=== PATIENT | male | born 1940 | race Caucasian/White ===

== ENCOUNTER 2017-01-14 18:20 | Inpatient (IN) | payer OTHER, MEDICARE ==
[~2017-01-14] VITALS: Ht 170.2 cm; Wt 75.7 kg
[2017-01-14] MEDS ORDERED: SERT100T PO (18:41)
[2017-01-14] MEDS ORDERED: TRIA10.8 NS (18:41)
[2017-01-14] MEDS ORDERED: GABA-534 PO (18:41)
[2017-01-14] MEDS ORDERED: TAMS-12 PO (18:41)
[2017-01-14] MEDS ORDERED: TRIA1TAB3 PO (18:41)
[2017-01-14] MEDS ORDERED: CARI350T27 PO (18:41)
[2017-01-14] MEDS ORDERED: METO25TA3 PO (18:41)
[2017-01-14] MEDS ORDERED: LOSA25TA13 PO (18:41)
[2017-01-14 18:44] LABS: BASOPHILS % (AUTO) 0.4 % (0.0-2.0); EOSINOPHILS # (AUTO) 0.1 /CMM (0.0-0.7); EOSINOPHILS % (AUTO) 2.1 % (0.0-6.0); HEMATOCRIT 43 % (39-51); HEMOGLOBIN 14.8 g/dL (13.5-17.5); LYMPHOCYTES # (AUTO) 1.5 /CMM (0.8-4.8); LYMPHOCYTES % (AUTO) 22.4 % (20.0-44.0); MEAN CORPUSCULAR HEMOGLOBIN 29 PG (26.0-33.0); MEAN CORPUSCULAR HGB CONC 34 g/dl (31.0-36.0); MEAN CORPUSCULAR VOLUME 86 fL (80-96); MONOCYTES # (AUTO) 0.4 /CMM (0.1-1.30); MONOCYTES % (AUTO) 6.7 % (2.0-12.0); NEUTROPHILS # (AUTO) 4.5 /CMM (1.8-8.9); NEUTROPHILS % (AUTO) 68.4 % (43.0-81.0); PLATELET COUNT (AUTO) 135 /CMM (150-450); RDW COEFFICIENT OF VARIATION 12.9 (11.5-15.0); RED BLOOD CELL COUNT(AUTO) 5.05 MIL/uL (4.5-6.0); WHITE BLOOD COUNT (AUTO) 6.5 K/uL (4.3-11.0)
[2017-01-14 18:53] LABS: CALCIUM, SERUM 10.4 mg/dL (8.5-10.1); CARBON DIOXIDE 27 mmol/L (21-32); CHLORIDE 106 mmol/L (98-107); CREATININE 1.1 mg/dL (0.6-1.3); GLUCOSE 97 mg/dL (74-106); POTASSIUM 3.8 mmol/L (3.5-5.1); SODIUM SERUM 141 mmol/L (136-145); UREA NITROGEN, BLOOD 14 mg/dL (7-18)
[2017-01-14 18:59] LABS: ALANINE AMINOTRANSFERASE 36 U/L (12-78); ALBUMIN 3.9 g/dL (3.4-5.0); ALCOHOL, BLOOD < 3 mg/dL (0-0); ALKALINE PHOSPHATASE 97 U/L (46-116); ASPARTATE AMINOTRANSFERASE 29 U/L (15-37); BILIRUBIN,DIRECT 0.1 mg/dL (0.0-0.2); BILIRUBIN,TOTAL 0.7 mg/dL (0.2-1.0); TOTAL PROTEIN, SERUM 7.5 g/dL (6.4-8.2)
[2017-01-14 19:09] LABS: ACETAMINOPHEN < 2 ug/ml (10-30); SALICYLATE < 2.8 mg/dL (2.8-20.0)
[2017-01-14 19:21] LABS: APPEARANCE,URINE Clear (CLEAR); BILIRUBIN,URINE Negative (NEGATIVE); BLOOD, URINE Negative Ery/uL (NEGATIVE); COLOR,URINE Yellow (YELLOW); KETONES,URINE Negative (NEGATIVE); LEUKOCYTE ESTERASE ,URINE Negative (NEGATIVE); NITRITE, URINE Negative (NEGATIVE); PROTEIN,URINE Negative (NEGATIVE); UGLUCOSE Negative (NEGATIVE); UROBILINOGEN,URINE 0.2 EU/dL (0.2)
[2017-01-14] MEDS ORDERED: ACETAMINOPHEN 325 MG TABLET PO PRN (20:30)
[2017-01-14] MEDS ORDERED: TEMAZEPAM 7.5 MG CAPSULE PO PRN (20:30)
[2017-01-14] MEDS ORDERED: MAGNESIUM HYDROXIDE 30 ML UDC PO PRN (20:30)
[2017-01-14] MEDS ORDERED: LORAZEPAM 0.5 MG TABLET PO PRN (20:30)
[2017-01-14] MEDS ORDERED: MAG HYDROX/AL HYDROX/SIMETH 30 ML UDC PO PRN (20:30)
[2017-01-14] MEDS ORDERED: TRIAMCINOLONE ACETONIDE NS PRN (21:00)
[2017-01-14] MEDS: GABAPENTIN 300 MG CAPSULE PO SCH (21:10)
[2017-01-14] MEDS: METOPROLOL SUCCINATE 25 MG TAB.SR.24H PO SCH (22:00)
[2017-01-15] VITALS: BP 148/76
[2017-01-15 08:00] VITALS: BP 161/95
[2017-01-15] MEDS: TRIAMTERENE/HYDROCHLOROTHIAZID (37.5/25MG) 1 UDCAP PO SCH (08:25)
[2017-01-15] MEDS: GABAPENTIN 300 MG CAPSULE PO SCH ×2 (08:25→21:46)
[2017-01-15] MEDS: TAMSULOSIN 0.4 MG CAP.SR.24H PO SCH (08:25)
[2017-01-15] MEDS: LOSARTAN POTASSIUM 25 MG TABLET PO SCH (08:26)
[2017-01-15] MEDS: SERTRALINE HCL 25 MG TABLET PO SCH ×2 (12:39→17:42)
[2017-01-15 13:11] LABS: BASOPHILS % (AUTO) 0.8 % (0.0-2.0); EOSINOPHILS # (AUTO) 0.1 /CMM (0.0-0.7); EOSINOPHILS % (AUTO) 1.6 % (0.0-6.0); HEMATOCRIT 48 % (39-51); LYMPHOCYTES # (AUTO) 0.9 /CMM (0.8-4.8); MEAN CORPUSCULAR HEMOGLOBIN 29 PG (26.0-33.0); MEAN CORPUSCULAR HGB CONC 33 g/dl (31.0-36.0); MEAN CORPUSCULAR VOLUME 87 fL (80-96); MONOCYTES # (AUTO) 0.3 /CMM (0.1-1.30); MONOCYTES % (AUTO) 5.2 % (2.0-12.0); NEUTROPHILS # (AUTO) 4.2 /CMM (1.8-8.9); NEUTROPHILS % (AUTO) 75.4 % (43.0-81.0); PLATELET COUNT (AUTO) 134 /CMM (150-450); WHITE BLOOD COUNT (AUTO) 5.6 K/uL (4.3-11.0)
[2017-01-15 13:27] LABS: CHOLESTEROL 219 mg/dL (<200); HDL CHOLESTEROL 50 mg/dL (40-60); LDL 146 mg/dL (0-99); TRIGLYCERIDES 134 mg/dL (30-150)
[2017-01-15 13:30] LABS: ALANINE AMINOTRANSFERASE 40 U/L (12-78); ALBUMIN 4.2 g/dL (3.4-5.0); ALKALINE PHOSPHATASE 114 U/L (46-116); ASPARTATE AMINOTRANSFERASE 26 U/L (15-37); BILIRUBIN,TOTAL 0.9 mg/dL (0.2-1.0); CALCIUM, SERUM 10.5 mg/dL (8.5-10.1); CARBON DIOXIDE 29 mmol/L (21-32); CHLORIDE 103 mmol/L (98-107); GLUCOSE 112 mg/dL (74-106); POTASSIUM 3.8 mmol/L (3.5-5.1); SODIUM SERUM 139 mmol/L (136-145); TOTAL PROTEIN, SERUM 8.3 g/dL (6.4-8.2); UREA NITROGEN, BLOOD 14 mg/dL (7-18)
[2017-01-15 16:00] VITALS: BP 117/71
[2017-01-15] MEDS: GABAPENTIN 100 MG CAPSULE PO SCH (17:41)
[2017-01-15 20:00] VITALS: BP 144/86
[2017-01-15] MEDS: QUETIAPINE FUMARATE 25 MG TABLET PO SCH (21:46)
[2017-01-15] MEDS: CARISOPRODOL 350 MG TABLET PO SCH (21:46)
[2017-01-15] MEDS: METOPROLOL SUCCINATE 25 MG TAB.SR.24H PO SCH (21:47)
[2017-01-16 08:00] VITALS: BP 157/92
[2017-01-16] MEDS: TAMSULOSIN 0.4 MG CAP.SR.24H PO SCH (08:00)
[2017-01-16] MEDS: GABAPENTIN 100 MG CAPSULE PO SCH ×2 (08:00→17:23)
[2017-01-16] MEDS: GABAPENTIN 300 MG CAPSULE PO SCH ×2 (08:01→21:23)
[2017-01-16] MEDS: TRIAMTERENE/HYDROCHLOROTHIAZID (37.5/25MG) 1 UDCAP PO SCH (08:01)
[2017-01-16] MEDS: LOSARTAN POTASSIUM 25 MG TABLET PO SCH (08:02)
[2017-01-16] MEDS: SERTRALINE HCL 25 MG TABLET PO SCH ×2 (08:02→17:23)
[2017-01-16 16:00] VITALS: BP 131/94
[2017-01-16 19:59] VITALS: BP 149/90
[2017-01-16] MEDS: QUETIAPINE FUMARATE 25 MG TABLET PO SCH (21:23)
[2017-01-16] MEDS: METOPROLOL SUCCINATE 25 MG TAB.SR.24H PO SCH (21:24)
[2017-01-17 08:00] VITALS: BP 142/91
[2017-01-17] MEDS: GABAPENTIN 300 MG CAPSULE PO SCH ×2 (09:09→20:14)
[2017-01-17] MEDS: TAMSULOSIN 0.4 MG CAP.SR.24H PO SCH (09:09)
[2017-01-17] MEDS: LOSARTAN POTASSIUM 25 MG TABLET PO SCH (09:10)
[2017-01-17] MEDS: TRIAMTERENE/HYDROCHLOROTHIAZID (37.5/25MG) 1 UDCAP PO SCH (09:11)
[2017-01-17] MEDS: SERTRALINE HCL 25 MG TABLET PO SCH ×2 (09:14→16:33)
[2017-01-17] MEDS: GABAPENTIN 100 MG CAPSULE PO SCH ×2 (09:14→16:33)
[2017-01-17] MEDS: MOMETASONE FUROATE NASAL SUSP 17 GM BOTTLE SCH (09:30)
[2017-01-17 16:00] VITALS: BP 138/79
[2017-01-17 19:53] VITALS: BP 152/84
[2017-01-17] MEDS: CARISOPRODOL 350 MG TABLET PO SCH (20:15)
[2017-01-17] MEDS: METOPROLOL SUCCINATE 25 MG TAB.SR.24H PO SCH (20:16)
[2017-01-17] MEDS: QUETIAPINE FUMARATE 25 MG TABLET PO SCH (21:17)
[2017-01-18 08:11] VITALS: BP 144/84
[2017-01-18] MEDS: GABAPENTIN 100 MG CAPSULE PO SCH ×2 (08:16→16:15)
[2017-01-18] MEDS: TAMSULOSIN 0.4 MG CAP.SR.24H PO SCH (08:16)
[2017-01-18] MEDS: TRIAMTERENE/HYDROCHLOROTHIAZID (37.5/25MG) 1 UDCAP PO SCH (08:16)
[2017-01-18] MEDS: GABAPENTIN 300 MG CAPSULE PO SCH ×2 (08:16→21:16)
[2017-01-18] MEDS: SERTRALINE HCL 25 MG TABLET PO SCH (08:17)
[2017-01-18] MEDS: LOSARTAN POTASSIUM 25 MG TABLET PO SCH (08:17)
[2017-01-18] MEDS: MOMETASONE FUROATE NASAL SUSP 17 GM BOTTLE SCH (08:25)
[2017-01-18 15:58] VITALS: BP 140/86
[2017-01-18 19:46] VITALS: BP 139/76
[2017-01-18] MEDS: QUETIAPINE FUMARATE 25 MG TABLET PO SCH (21:37)
[2017-01-18] MEDS: METOPROLOL SUCCINATE 25 MG TAB.SR.24H PO SCH (21:38)
[2017-01-19 08:04] VITALS: BP 127/87
[2017-01-19] MEDS ORDERED: SERTRALINE HCL 25 MG TABLET PO SCH (09:00)
[2017-01-19] MEDS ORDERED: QUETIAPINE FUMARATE 25 MG TABLET PO SCH (09:00)
[2017-01-19] MEDS: GABAPENTIN 300 MG CAPSULE PO SCH (09:37)
[2017-01-19] MEDS: TRIAMTERENE/HYDROCHLOROTHIAZID (37.5/25MG) 1 UDCAP PO SCH (09:37)
[2017-01-19] MEDS: MOMETASONE FUROATE NASAL SUSP 17 GM BOTTLE SCH (09:37)
[2017-01-19] MEDS: GABAPENTIN 100 MG CAPSULE PO SCH (09:37)
[2017-01-19] MEDS: TAMSULOSIN 0.4 MG CAP.SR.24H PO SCH (09:38)
[2017-01-19 09:39] VITALS: BP 127/87
[2017-01-19] MEDS: LOSARTAN POTASSIUM 25 MG TABLET PO SCH (09:39)
== END 2017-01-19 15:30 | DRG 885 ==
LOC: ER 18:22 → GPS 19:58
PROVIDERS: ADMIT Psychiatry & Neurology Psychosomatic Medicine; ATTEND Psychiatry & Neurology Psychosomatic Medicine
DX: F29 Unspecified psychosis not due to a substance or known physiological condition (principal); F03.91 Unspecified dementia, unspecified severity, with behavioral disturbance; R47.01 Aphasia; I10 Essential (primary) hypertension; F32.9 Major depressive disorder, single episode, unspecified; F60.9 Personality disorder, unspecified; N40.0 Benign prostatic hyperplasia without lower urinary tract symptoms; Z79.899 Other long term (current) drug therapy
CPT/HCPCS: 36415; 70450-TC; 80048-TC; 80053-TC; 80061-TC; 80076-TC; 80305; 81000-TC; 82746; 84443-TC; 85025-TC; 87081-TC; A4606; G0480; Z7610